=== PATIENT | female | born 1980 | race Caucasian/White ===

== ENCOUNTER 2020-02-28 12:45 | Inpatient (IN) | payer OTHER ==
[~2020-02-28] VITALS: Ht 170.2 cm; Wt 161.0 kg
--- NOTE | 2020-02-28 13:37 | PHYS DOC ---
Past History Past Medical History: Diabetes, Hypertension Past Surgical History: Tonsillectomy Alcohol Use: None General Adult EDM: Chief Complaint: SHORTNESS OF BREATH HPI: HPI: Patient is a 40-year-old female who arrives with a 10-day history of cough with shortness of breath. Patient has a family member who recently tested positive for COVID-19. Patient has shortness of breath is worse with exertion. Patient complains of pleuritic chest and back pain as well as headache. Patient states she has had a fever with some episodes of nausea vomiting today. Patient also complains of myalgias and diarrhea. Review of Systems: Review of Systems: Constitutional: Patient planes of fever Eyes: Denies change in visual acuity HENT: Patient complains of congestion Respiratory: Patient planes of cough and shortness of breath Cardiovascular: Denies chest pain or edema GI: Denies abdominal pain, the patient complains of nausea, vomiting, and diarrhea : Denies dysuria Musculoskeletal: Patient complains of myalgias Integument: Denies rash Neurologic: Patient complains of headache but no, focal weakness or sensory changes Endocrine: Denies polyuria or polydipsia Lymphatic: Denies swollen glands Psychiatric: Denies depression or anxiety Allergies: Allergies: Allergies Coded Allergies Type Severity Reaction Last Updated Verified No Known Drug Allergies 02/28/20 No Physical Exam: PE: Constitutional: Well developed, well nourished, no acute distress, non-toxic appearance. [] HENT: Normocephalic, atraumatic, bilateral external ears normal, no trismus nose normal. [] Eyes: PERRLA, EOMI, conjunctiva normal, no discharge. [] Neck: Normal range of motion, no tenderness, supple, no stridor. [] Cardiovascular: Mild tachycardia, peripheral pulse intact, cap refill is brisk Lungs & Thorax: Diminished breath sounds bilaterally mild increased work of breathing Abdomen: , soft, no tenderness, no masses, no pulsatile masses. [] Skin: Warm, dry, no erythema, no rash. [] Back: No tenderness, no CVA tenderness. [] Extremities: No tenderness, no cyanosis, no clubbing, ROM intact, mild bilateral extremity edema Neurologic: Alert and oriented X 3, normal motor function, normal sensory function, no focal deficits noted. [] Psychologic: Affect normal, judgement normal, mood normal. [] Current Patient Data: Labs: Laboratory Tests Test 02/28/20 13:36 White Blood Count 9.7 x10^3/uL Red Blood Count 4.87 x10^6/uL Hemoglobin 15.6 g/dL Hematocrit 45.3 % Mean Corpuscular Volume 93 fL Mean Corpuscular Hemoglobin 32 pg Mean Corpuscular Hemoglobin Concent 35 g/dL Red Cell Distribution Width 13.0 % Platelet Count 187 x10^3/uL Neutrophils (%) (Auto) 67 % Lymphocytes (%) (Auto) 24 % Monocytes (%) (Auto) 9 % Eosinophils (%) (Auto) 1 % Basophils (%) (Auto) 0 % Neutrophils # (Auto) 6.5 x10^3uL Lymphocytes # (Auto) 2.3 x10^3/uL Monocytes # (Auto) 0.8 x10^3/uL Eosinophils # (Auto) 0.1 x10^3/uL Basophils # (Auto) 0.0 x10^3/uL D-Dimer (Maryellen) 0.29 mg/L Maternal Serum HCG Beta Subunit < 1 mIU/mL Sodium Level 140 mmol/L Potassium Level 3.2 mmol/L Chloride Level 101 mmol/L Carbon Dioxide Level 26 mmol/L Anion Gap 13 Blood Urea Nitrogen 10 mg/dL Creatinine 0.8 mg/dL Estimated GFR (Cockcroft-Gault) 79.9 BUN/Creatinine Ratio 13 Glucose Level 248 mg/dL Lactic Acid Level 1.5 mmol/L Calcium Level 8.8 mg/dL Total Bilirubin 2.7 mg/dL Aspartate Amino Transf (AST/SGOT) 89 U/L Alanine Aminotransferase (ALT/SGPT) 93 U/L Alkaline Phosphatase 80 U/L Lactate Dehydrogenase 284 U/L Creatine Kinase 100 U/L Troponin I Quantitative < 0.017 ng/mL C-Reactive Protein 16.3 mg/L ES-Ljc-I-Type Natriuretic Peptide 35 pg/mL Total Protein 8.2 g/dL Albumin 3.9 g/dL Albumin/Globulin Ratio 0.9 Current Medications Medications (Trade) Dose Ordered Sig/Fidel Route PRN Reason Start Time Stop Time Status Last Admin Dose Admin Dexamethasone Sodium Phosphate (Decadron) 4 mg 1X ONCE IVP 02/28/20 13:41 02/28/20 13:42 DC 02/28/20 13:48 Ondansetron HCl (Zofran) 4 mg PRN Q4HRS PRN IVP NAUSEA/VOMITING 02/28/20 14:15 02/29/20 14:14 Potassium Chloride (Klor-Con) 40 meq 1X ONCE PO 02/28/20 15:00 02/28/20 15:01 DC Vital Signs: Vital Signs Date Time Temp Pulse Resp B/P (MAP) Pulse Ox O2 Delivery O2 Flow Rate FiO2 02/28/20 12:54 98.5 97 24 137/82 (100) 92 Room Air EKG: EKG: EKG interpreted by me normal sinus rhythm with rate of 77 normal axis normal intervals normal ST segments Radiology/Procedures: Radiology/Procedures: [][address] [address] IMAGING REPORT Signed PATIENT: ZBIGNIEW MAX ACCOUNT: [id number] : 1980 LOCATION: ER AGE: 40 SEX: F EXAM STATUS: REG ER ORD. PHYSICIAN: GM OBRIEN MD REASON: cough, covid PROCEDURE: PORTABLE CHEST 1V PORTABLE CHEST 1V INDICATION: Reason: cough, covid / Spl. Instructions: / History: . COMPARISON STUDY: None. FINDINGS: Lungs: Normal lung volume. Ill-defined right greater than left perihilar opacities. The tracheobronchial tree and hilar structures are normal. Pleura: No pleural effusion or pneumothorax. Heart and Mediastinum: The cardiomediastinal silhouette is normal. The great vessels of the thorax are normal. Bones and Soft Tissues: The bones and soft tissues are within normal limits. IMPRESSION: Ill-defined right greater than left perihilar opacities, possibly an infectious/inflammatory process or asymmetric edema. Electronically signed by: Marah Reaves MD (02/28/2020 2:14 PM) [id number] DICTATED AND SIGNED BY: MARAH REAVES MD DATE: 02/28/20 1414 CC: GM OBRIEN MD; LOR RIVERA PA ~ Heart Score: Risk Factors: Risk Factors: DM, Current or recent (<one month) smoker, HTN, HLP, family history of CAD, obesity. Risk Scores: Score 0 - 3: 2.5% MACE over next 6 weeks - Discharge Home Score 4 - 6: 20.3% MACE over next 6 weeks - Admit for Clinical Observation Score 7 - 10: 72.7% MACE over next 6 weeks - Early Invasive Strategies Course & Med Decision Making: Course & Med Decision Making Pertinent Labs and Imaging studies reviewed. (See chart for details) [] 40-year-old female presents with shortness of breath and fever and a cough. Patient symptoms are consistent with COVID-19. Patient is improved after oxygen. Patient will need to be admitted to Dr. Case for further treatment for COVID-19. Steroids have been given. Dragon Disclaimer: Dragon Disclaimer: This electronic medical record was generated, in whole or in part, using a voice recognition dictation system. Departure Departure: Impression: Primary Impression: Pneumonia due to COVID-19 virus Additional Impressions: Acute respiratory failure with hypoxia Diabetes mellitus Dyspnea Disposition: ADMITTED INPT THIS HOSP Admitting Physician: Manfred Case Condition: STABLE Referrals: LOR RIVERA (PCP) GM OBRIEN MD Feb 28, 2020 13:37
[2020-02-28] MEDS ORDERED: DEXAMETHASONE SOD PHOS 4 MG/ML VIAL. IVP ONE (13:41)
--- NOTE | 2020-02-28 14:02 | EKG ---
[address] [address] Test Date: 2020-02-28 Test Time: 13:56:32 Pat Name: ZBIGNIEW MAX Department: Room: Gender: F [employer]: : 1980 Requested By: GM OBRIEN Order Number: [id number] Reading MD: Measurements Intervals [place] Rate: 77 P: 34 CO: 148 QRS: 16 QRSD: 82 T: 35 QT: 396 QTc: 450 Interpretive Statements SINUS RHYTHM NORMAL ECG RI6.02 No previous ECG available for comparison
[2020-02-28] MEDS ORDERED: ONDANSETRON PF 4 MG/2 ML VIAL. IVP PRN (14:15)
--- NOTE | 2020-02-28 14:17 | RAD ---
PORTABLE CHEST 1V INDICATION: Reason: cough, covid / Spl. Instructions: / History: . COMPARISON STUDY: None. FINDINGS: Lungs: Normal lung volume. Ill-defined right greater than left perihilar opacities. The tracheobronchial tree and hilar structures are normal. Pleura: No pleural effusion or pneumothorax. Heart and Mediastinum: The cardiomediastinal silhouette is normal. The great vessels of the thorax are normal. Bones and Soft Tissues: The bones and soft tissues are within normal limits. IMPRESSION: Ill-defined right greater than left perihilar opacities, possibly an infectious/inflammatory process or asymmetric edema. Electronically signed by: Heriberto Reaves MD (02/28/2020 2:14 PM) [id number]
[2020-02-28 14:21] LABS: BASO % 0 % (0-3); EOS # 0.1 x10^3/uL (0.0-0.7); EOS % 1 % (0-3); HEMATOCRIT 45.3 % (36.0-47.0); HEMOGLOBIN 15.6 g/dL (12.0-15.5); LYMPH # 2.3 x10^3/uL (1.0-4.8); LYMPH % 24 % (24-48); MEAN CORPUSCULAR HEMOGLOBIN 32 pg (25-35); MEAN CORPUSCULAR HGB CONC 35 g/dL (31-37); MEAN CORPUSCULAR VOLUME 93 fL (79-100); MONO # 0.8 x10^3/uL (0.0-1.1); MONO % 9 % (0-9); NEUT # 6.5 x10^3uL (1.8-7.7); NEUT % 67 % (31-73); PLATELET COUNT 187 x10^3/uL (140-400); RED BLOOD COUNT 4.87 x10^6/uL (3.50-5.40); WHITE BLOOD COUNT 9.7 x10^3/uL (4.0-11.0)
[2020-02-28 14:50] LABS: CALCIUM 8.8 mg/dL (8.5-10.1); CREATININE 0.8 mg/dL (0.6-1.0); GFR 79.9; POTASSIUM 3.2 mmol/L (3.5-5.1)
[2020-02-28 14:58] LABS: ALBUMIN 3.9 g/dL (3.4-5.0); ALBUMIN/GLOBULIN RATIO 0.9 (1.0-1.7); C REACTIVE PROTEIN 16.3 mg/L (0-3.3); TOTAL BILIRUBIN 2.7 mg/dL (0.2-1.0); TOTAL PROTEIN 8.2 g/dL (6.4-8.2)
[2020-02-28] MEDS ORDERED: POTASSIUM CHLORIDE 20 MEQ TABLET.ER. PO ONE (15:00)
--- NOTE | 2020-02-28 15:12 | HP ---
ADMIT DATE: 02/28/2020 ATTENDING PHYSICIAN: Dr. Richardson. CHIEF COMPLAINT: Shortness of breath. HISTORY OF PRESENT ILLNESS: The patient is a 40-year-old female with a 10-day history of cough and congestion. She has a family member recently tested positive for COVID-19. Her swab is pending at this time. The shortness of breath is worse with exertion. She has pleuritic chest pain and back pain as well as headache. She had an episode of nausea and vomiting earlier today. She also complains of myalgias. In the ED, her chest x-ray demonstrated bibasilar as well as perihilar infiltrates, there was a poor inspiratory effort. She is admitted then with tentative atypical pneumonia consistent with COVID-19 coronavirus. PAST MEDICAL HISTORY: Significant for type 2 diabetes, hypertension, morbid obesity. She weighs in excess of 350 pounds. She has had a previous tonsillectomy. CURRENT MEDICATIONS: Reviewed. She was taking metformin and unspecified hypertensive medicines. ALLERGIES: She has no known drug allergies. SOCIAL HISTORY: She is a nonsmoker, nondrinker. She has 2 children, ages 7 and 5. They have been exposed, they have not been ill. FAMILY HISTORY: Parents are alive in their early 60s and in fairly good health. REVIEW OF SYSTEMS: Significant for the symptoms for 10 days now. She has cough, congestion, shortness of breath, some nausea, one episode of vomiting, COVID exposure as noted. All other systems reviewed and turned to be negative. PHYSICAL EXAMINATION: GENERAL: When I saw her, this is a pleasant young female. INITIAL VITAL SIGNS: Showed a temperature 98.5 degrees Fahrenheit, blood pressure 137/82, pulse is 97 and regular, oxygen saturation 92% on room air. HEENT: Head is without trauma. Pupils are reactive. Sclerae are nonicteric. Oropharynx is clear. NECK: Supple, no bruits identified. LUNGS: Coarse rhonchi bilaterally. CARDIOVASCULAR: Showed regular heart tones. No gallops. Peripheral pulses are palpable and full. ABDOMEN: Obese, protuberant. No organomegaly. Bowel sounds are hypoactive. EXTREMITIES: Show trace edema. NEUROLOGIC: Focally intact. Speech is fluent. PERTINENT LABORATORY STUDIES: Hemoglobin is 15.6 g/dL with white count of 9700. Chemistry panel is pending. Chest x-ray as noted. ASSESSMENT: 1. A 40-year-old female with probable atypical pneumonia related to coronavirus. 2. Morbid obesity. 3. Essential hypertension. 4. Type 2 diabetes mellitus. PLAN: 1. Admit to the inpatient unit. 2. Supplemental oxygen. 3. I will hold off IV fluids. We prefer the patient to be on the dry side. 4. Empiric Lovenox. 5. Empiric zinc. 6. Empiric Decadron, which will aggravate her blood sugars. 7. Empiric Pepcid. LOIS RICHARDSON MD DR: MIKE/man JOB#: [id number] / [id number] OLR Zapata
[2020-02-28 16:08] VITALS: BP 166/91
[2020-02-28] MEDS ORDERED: DEXAMETHASONE 4 MG TABLET PO SCH (17:50)
[2020-02-28] MEDS: FAMOTIDINE 20 MG TABLET PO SCH (18:01)
[2020-02-28] MEDS: ZINC SULFATE 220 MG CAPSULE. PO SCH (18:02)
[2020-02-28] MEDS: ENOXAPARIN 40 MG/0.4 ML SYRINGE. SQ SCH (18:03)
[2020-02-28] MEDS ORDERED: DEXAMETHASONE 4 MG TABLET PO ONE (18:15)
[2020-02-28] MEDS ORDERED: ACETAMINOPHEN 325 MG TABLET PO ONE ×2 (18:21)
[2020-02-28] MEDS: ACETAMINOPHEN 325 MG TABLET PO PRN (18:28)
[2020-02-28 19:30] VITALS: BP 170/89
[2020-02-28] MEDS ORDERED: CITA40TA5 PO (20:14)
[2020-02-28] MEDS ORDERED: LOSA100T14 PO (20:14)
[2020-02-28] MEDS ORDERED: METF-658 PO (20:14)
[2020-02-28 21:25] VITALS: BP 156/91
[2020-02-28 23:06] LABS: COLOR,URINE YELLOW
[2020-02-28 23:07] LABS: BACTERIA,URINE FEW /HPF (0-FEW); BILIRUBIN,URINE NEG (NEG); CLARITY,URINE HAZY; GLUCOSE,URINE >=1000 mg/dL (NEG); NITRITE,URINE NEG (NEG); SQUAMOUS EPITHELIAL CELL,UR FEW /LPF; WBC,URINE >40 /HPF (0-4)
[2020-02-28 23:45] VITALS: BP 132/69
--- NOTE | 2020-02-29 05:00 | NUR ---
Pt is A&Ox4, pleasant and cooperative with all cares and assessments. Pt was flushed in face & chest at start of shift but without fever. Pt up to bathroom 3 times independently, UA obtained. Pt with occasional non-productive cough. Pt wearing O2 at 2L NC to keep sats above 92% and maintained that throughout night. Pt still PUI this AM.
[2020-02-29 06:05] VITALS: BP 152/79
[2020-02-29] MEDS: ZINC SULFATE 220 MG CAPSULE. PO SCH (08:12)
[2020-02-29] MEDS: FAMOTIDINE 20 MG TABLET PO SCH (08:12)
[2020-02-29] MEDS: DEXAMETHASONE 4 MG TABLET PO SCH (08:12)
[2020-02-29] MEDS ORDERED: DEXTROSE 50% 25 GM / 50ML DISP.SYRIN. IV PRN ×2 (09:45→19:15)
[2020-02-29 10:25] VITALS: BP 149/68
[2020-02-29] MEDS: metFORMIN XR 500 MG TAB.ER.24H PO SCH (11:59)
[2020-02-29] MEDS: INSULIN LISPRO 300 UNITS/3 ML VIAL. SQ SCH ×2 (12:02→17:23)
[2020-02-29 15:18] VITALS: BP 140/85
[2020-02-29] MEDS: ENOXAPARIN 40 MG/0.4 ML SYRINGE. SQ SCH (17:22)
[2020-02-29] MEDS ORDERED: INSULIN LISPRO 300 UNITS/3 ML VIAL. SQ ONE ×2 (18:45→22:30)
[2020-02-29 19:46] VITALS: BP 151/84
[2020-02-29] MEDS: ACETAMINOPHEN 325 MG TABLET PO PRN (19:54)
[2020-02-29 22:12] VITALS: BP 148/84
[2020-02-29] MEDS ORDERED: INSULIN GLARGINE SYRINGE. SQ ONE (22:30)
--- NOTE | 2020-03-01 00:47 | PN ---
DATE: 02/29/2020 ATTENDING PHYSICIAN: Dr. Richardson. SUBJECTIVE: Feeling better. Headache is resolved. Nausea has improved. OBJECTIVE FINDINGS: VITAL SIGNS: Blood sugars have been high due to the Decadron therapy. Blood pressure today is 149/68, pulse 77 and regular. She is afebrile. Oxygen saturation adequate on 2 liters. Her COVID swab is still pending. HEENT: Head is without trauma. Pupils are reactive. Sclerae nonicteric. Oropharynx clear. NECK: Supple, no bruits. LUNGS: Good breath sounds. CARDIOVASCULAR: Showed regular heart tones. No gallops. ABDOMEN: Obese, protuberant. No organomegaly. EXTREMITIES: Without edema. NEUROLOGIC: Focally intact. Speech is fluent. Lobster Man intact. SKIN: Warm and dry. ASSESSMENT: 1. A 40-year-old female with atypical pneumonia related to probable coronavirus. 2. Morbid obesity. 3. Essential hypertension. 4. Type 2 diabetes. PLAN: 1. Continue empiric Lovenox. 2. Empiric Decadron. 3. Monitoring blood sugars. 4. Await results of coronavirus swab. 5. Supplemental oxygen. We will monitor oxygen saturation. LOIS RICHARDSON MD DR: MIKE/man JOB#: [id number] / [id number]
[2020-03-01 04:52] VITALS: BP 158/92
--- NOTE | 2020-03-01 05:48 | NUR ---
Shift Note: pt is a/o x4, VSS (with oxygen, pt on 2 liters NC and is 92% (she was 87% on RA)), no c/o n/v at this time. Pt did c/o headache at start of shift (tylenol administered, pt expressed relief). Pt's blood sugars have been elevated w/the decadron (Humalog 20 units and Lantus 15 units administered).
[2020-03-01] MEDS ORDERED: POTASSIUM CHLORIDE 20 MEQ TABLET.ER. PO ONE (07:30)
[2020-03-01] MEDS: CITALOPRAM 20 MG TABLET. PO SCH (07:52)
[2020-03-01] MEDS: FAMOTIDINE 20 MG TABLET PO SCH (07:52)
[2020-03-01] MEDS: DEXAMETHASONE 4 MG TABLET PO SCH (07:52)
[2020-03-01] MEDS: LOSARTAN 50 MG TABLET. PO SCH (07:53)
[2020-03-01] MEDS: metFORMIN XR 500 MG TAB.ER.24H PO SCH ×2 (07:53→18:15)
[2020-03-01] MEDS: ZINC SULFATE 220 MG CAPSULE. PO SCH (07:53)
[2020-03-01] MEDS: INSULIN LISPRO 300 UNITS/3 ML VIAL. SQ SCH ×4 (07:55→17:43)
[2020-03-01 12:15] VITALS: BP 152/91
[2020-03-01] MEDS: ACETAMINOPHEN 325 MG TABLET PO PRN ×2 (12:15→21:10)
[2020-03-01 16:26] VITALS: BP 159/86
[2020-03-01] MEDS ORDERED: metFORMIN XR 500 MG TAB.ER.24H PO SCH (17:00)
--- NOTE | 2020-03-01 17:44 | NUR ---
NSG NOTE: FSBS [address] POSADA. INSULIN LISPRO 25 UNITS TOTAL GIVEN AND METFORMIN GIVEN
[2020-03-01] MEDS ORDERED: INSULIN LISPRO 300 UNITS/3 ML VIAL. SQ SCH (17:45)
[2020-03-01 19:52] VITALS: BP 153/92
[2020-03-01] MEDS ORDERED: INSULIN GLARGINE SYRINGE. SQ SCH (20:30)
[2020-03-01] MEDS: ENOXAPARIN ** NOTE DOSE ** SYRINGE SQ SCH (21:00)
[2020-03-02 03:58] VITALS: BP 128/77
[2020-03-02 06:58] LABS: ALBUMIN 3.5 g/dL (3.4-5.0); ALBUMIN/GLOBULIN RATIO 0.9 (1.0-1.7); CALCIUM 8.7 mg/dL (8.5-10.1); GFR 61.7; HEMATOCRIT 43.5 % (36.0-47.0); HEMOGLOBIN 14.5 g/dL (12.0-15.5); POTASSIUM 3.9 mmol/L (3.5-5.1); RED BLOOD COUNT 4.61 x10^6/uL (3.50-5.40); RED CELL DISTRIBUTION WIDTH 12.7 % (11.5-14.5); TOTAL BILIRUBIN 1.5 mg/dL (0.2-1.0); TOTAL PROTEIN 7.6 g/dL (6.4-8.2); WHITE BLOOD COUNT 11.9 x10^3/uL (4.0-11.0)
[2020-03-02] MEDS: metFORMIN XR 500 MG TAB.ER.24H PO SCH (08:00)
[2020-03-02] MEDS: CITALOPRAM 20 MG TABLET. PO SCH (08:08)
[2020-03-02] MEDS: ZINC SULFATE 220 MG CAPSULE. PO SCH (08:08)
[2020-03-02] MEDS: FAMOTIDINE 20 MG TABLET PO SCH (08:08)
[2020-03-02] MEDS: DEXAMETHASONE 4 MG TABLET PO SCH (08:09)
[2020-03-02] MEDS: ENOXAPARIN ** NOTE DOSE ** SYRINGE SQ SCH (08:11)
[2020-03-02] MEDS: INSULIN LISPRO 300 UNITS/3 ML VIAL. SQ SCH ×3 (08:13→12:21)
[2020-03-02] MEDS: LOSARTAN 50 MG TABLET. PO SCH (08:15)
[2020-03-02] MEDS ORDERED: INSULIN LISPRO 300 UNITS/3 ML VIAL. SQ SCH (12:15)
--- NOTE | 2020-03-02 12:26 | NUR ---
NURSING NOTE: HIGH POCT GLUCOSE. BS READING OF 405. CALLED DR. POSADA, ORDERS FOR 10 UNITS ACMEALS IN ADDITION TO SLIDING SCALE MAX OF 9 UNITS. WILL CONTINUE TO MONITOR. CHANDLER JAMES
[2020-03-02 12:27] VITALS: BP 137/76
--- NOTE | 2020-03-02 15:06 | PN ---
DATE: 03/01/2020 SUBJECTIVE: The patient is a 40-year-old female patient who was admitted with atypical pneumonia related to coronavirus. She continued to complain of some headache, cough, has had no more nausea or diarrhea. She is maintaining her oxygen saturation around 93% on room air. When I examined her, nursing staff got concerned because her blood sugar is high and dexamethasone obviously made it slightly higher. PHYSICAL EXAMINATION: GENERAL: When I examined her this afternoon, she was sitting comfortably in her chair, in no apparent respiratory distress. No pallor, jaundice, cyanosis or thyromegaly. No jugular venous distention. No limb edema. VITAL SIGNS: Her heart rate was 68, blood pressure 159/86, temperature was 97.5, respiratory rate 20, and oxygen saturation was 95% on 2 liters of oxygen. HEAD, EYES, EARS, NOSE AND THROAT: Showed normocephalic and atraumatic. She was somewhat flushed. NECK: Supple. CARDIAC: Normal first and second heart sounds. No gallop, rub or murmur. CHEST: Shows central trachea, equal bilateral expansion air entry, vesicular breath sounds. No crepitation or rhonchi. ABDOMEN: Distended, soft, nontender. NEUROLOGIC: She is grossly intact. Her intake over the last 24 hours was 1150, output is 1100. LABORATORY DATA: Her most recent lab work showed a serum sodium 140, potassium 3.2, chloride 101, bicarbonate 26, anion gap of 13, BUN 10, creatinine 0.8, estimated GFR was 80 mL per minute. Her glucose was high today and has been in the 200-300 range. Her calcium was 8.8. Total bilirubin 2.7, AST and ALT elevated, alkaline phosphatase is normal. Lactate dehydrogenase was slightly high at 284. CK was 100. C-reactive protein was 16.3. Total protein was 8.2, albumin was 3.9. D-dimer was 0.29. Urinalysis showed the urine was yellow, hazy with a pH of 5.5, large amount of protein, large amount of glucose and ketones, moderate amount of blood, there were more than 40 wbc's. Her urine culture has grown about 40,000 colony forming units, normal genitourinary nathalia and her blood cultures so far showed no growth after 2 days. Her chest x-ray showed the patient has ill-defined right greater than left perihilar opacity, possibly an infectious inflammatory process ____ edema. Her coronavirus by PCR was detected. ASSESSMENT: 1. This is a 40-year-old female patient with ____ pneumonia related due to COVID-19 pneumonia. 2. Morbid obesity. 3. Hypertension. 4. Type 2 diabetes, suboptimally controlled given that she is on dexamethasone. PLAN: To continue with Decadron and continued Lovenox. I will increase her metformin to twice a day and add also scheduled dose of insulin before meals. I would repeat her labs tomorrow. JAMIE POSADA MD DR: WILL/man JOB#: [id number] / [id number]
[2020-03-02] MEDS ORDERED: METF-638 PO (16:40)
[2020-03-02 16:49] VITALS: BP 141/64
--- NOTE | 2020-03-02 17:35 | NUR ---
NURSING NOTE: DISCHARGE PT DISCHARGED HOME VIA AMBULATION PICKED UP BY . WRITTEN AND VERBAL DISCHARGE INSTRUCTIONS GIVEN, VERBAL UNDERSTANDING RECEIVED.RX GIVEN FOR METFORMIN, GLUCOMETER, AND MEDROL DOSE PACK. NO FURTHER QUESTIONS. CHANDLER JAMES
--- NOTE | 2020-03-03 01:23 | DS ---
DATE OF DISCHARGE: 03/02/2020 HOSPITAL COURSE: The patient is a 40-year-old female patient, who was admitted on 02/27. She presented as her family member tested positive for COVID. Did have some shortness of breath and some pleuritic chest pain, back pain as well as headache. Had an episode of nausea and vomiting the day of admission and some complaint of myalgias. Her chest x-ray did demonstrate perihilar infiltrate and was admitted and eventually confirmed. Her coronavirus PCR was detectable; however, she remained mostly asymptomatic, afebrile. Her lab work was normal although she has some elevated liver enzymes, likely due to nonalcoholic steatohepatitis as she is diabetic and also has body mass index 55 kilograms square meter. PHYSICAL EXAMINATION: GENERAL: When I saw her today, she looked well and was clearly in no apparent distress. She did have some mild epistaxis but otherwise she has been stable with no pallor, jaundice, cyanosis or thyromegaly. No jugular venous distention or limb edema. VITAL SIGNS: Her heart rate was 68, blood pressure was 137/76, temperature was 97.8, respiratory rate was 20, oxygen saturation was 92% on room air. HEAD, EYES, EARS, NOSE AND THROAT: Showed normocephalic, atraumatic. NECK: Supple. HEART: Normal first and second heart sounds with no gallop, rub or murmur. CHEST: Clear to auscultation. No crepitation or rhonchi. ABDOMEN: Distended, soft, nontender. NEUROLOGIC: She was grossly intact. LABORATORY DATA: This morning showed white cell count of 11,900 and hemoglobin 14.5, hematocrit 44, MCV 94 and platelet count 229,000. Her chemistry showed serum sodium 139, potassium 3.9, chloride 101, bicarbonate 27, anion gap of 11, BUN 21, creatinine 1. Estimated GFR was 61 mL per minute. Her glucose was 281, calcium was 8.7. Total bilirubin, AST and ALT are elevated. The alkaline phosphatase was 182. Total protein 7.6, albumin 3.5. The D-dimer was less than 0.21 mg/dL. Urinalysis showed the urine was hazy, yellow with a pH of 5.5. There were 3-5 rbc's and more than 40 wbc's; however, urine culture showed 40,000 colony forming units per mL of normal genitourinary nathalia and blood cultures remained negative after 3 days. DISCHARGE MEDICATIONS: She was discharged home, to continue on metformin extended release 500 mg twice a day and Medrol Dosepak. She will continue also on her losartan potassium 100 mg daily and citalopram hydrobromide 40 mg daily. The patient was urged to follow with her primary care physician to achieve better control of her blood sugar. FINAL DISCHARGE DIAGNOSES: 1. The patient was admitted with atypical pneumonia related to COVID-19 viral infection. 2. Morbid obesity. 3. Hypertension. 4. Type 2 diabetes mellitus, was suboptimally controlled given that she was on dexamethasone. The patient was encouraged to follow with her primary care physician to monitor her blood sugar. She might require either oral hypoglycemic agent and/or to start on insulin. JAMIE POSADA MD DR: WILL/man JOB#: [id number] / [id number]
== END 2020-03-02 17:40 | disposition home or self-care (01) | DRG 177 ==
LOC: ER 12:45 → 1 SOUTH 14:15
PROVIDERS: ADMIT Hospitalist; ATTEND Hospitalist
DX: U07.1 COVID-19 (principal); J12.89 Other viral pneumonia; J96.01 Acute respiratory failure with hypoxia; Z68.43 Body mass index [BMI] 50.0-59.9, adult; E11.9 Type 2 diabetes mellitus without complications; E66.01 Morbid (severe) obesity due to excess calories; I10 Essential (primary) hypertension; K75.81 Nonalcoholic steatohepatitis (NASH); Z90.49 Acquired absence of other specified parts of digestive tract
CPT/HCPCS: 36415; 71045; 80053; 81001; 82550; 82947; 83605; 83615; 83880; 84484; 84702; 85025; 85027; 85379; 86140; 87040; 87086; 93005; 96374; 99285; J1100; J1650; J1815; J2405; J8540; U0003